=== PATIENT | female | born 1985 | race American Indian/Alaskan Native ===

== ENCOUNTER 2017-02-20 02:06 | Emergency (ER) | payer SELFPAY | END 2017-02-20 02:33 | disposition left against medical advice (07) | LOC: ED 02:06 | DX: O20.9 Hemorrhage in early pregnancy, unspecified (principal); R10.9 Unspecified abdominal pain; Z3A.01 Less than 8 weeks gestation of pregnancy; Z53.21 Procedure and treatment not carried out due to patient leaving prior to being seen by health care provider ==

== ENCOUNTER 2017-06-04 23:02 | Emergency (ER) | payer MEDICAID ==
[2017-06-04 23:22] VITALS: BP 136/94
== END 2017-06-05 01:21 | disposition left against medical advice (07) ==
LOC: ED 23:02
DX: R10.9 Unspecified abdominal pain (principal); Z53.21 Procedure and treatment not carried out due to patient leaving prior to being seen by health care provider